=== PATIENT | male | born 1960 | race Caucasian/White ===

== ENCOUNTER 2021-02-20 19:22 | Emergency (ER) | payer MEDICAID, SELFPAY ==
[2021-02-20 19:41] VITALS: BP 120/84; PULSE 80; RESP 18; TEMP 36.7; O2SAT 97; BMI 25.1
[2021-02-20 20:01] VITALS: O2SAT 97
--- NOTE | 2021-02-20 20:41 | XRR_ITS ---
PROCEDURE INFORMATION: Exam: XR Chest Exam date and time: 02/20/2021 8:41 PM Age: 60 years old Clinical indication: Dyspnea; Additional info: SOB, covid + TECHNIQUE: Imaging protocol: XR of the chest. Views: 1 view. COMPARISON: No relevant prior studies available. FINDINGS: Lungs: There is some subtle peripheral haziness seen within the right hemithorax. There are strandy and patchy opacities present in the lower hemithoraces bilaterally. These findings are compatible with the patient's known COVID-19 pneumonia. Pleural spaces: Unremarkable. No pleural effusion. No pneumothorax. Heart/Mediastinum: Unremarkable. No cardiomegaly. Bones/joints: Unremarkable. XR/XR chest 1V portable [id number] IMPRESSION: Subtle haziness seen at the periphery of the right hemithorax and bilateral basilar patchy and strandy opacities present , findings compatible with the patient's known COVID-19 pneumonia.
[2021-02-20 20:59] LABS: Basophils % 0.1 %; Hematocrit 42.2 % (42.0-52.0); Hemoglobin 14.5 g/dL (11.7-16.6); Lymphocytes # 0.5 10^3/uL (0.8-4.8); Lymphocytes % 7.1 %; Mean Corpuscular HGB Conc 34.4 g/dL (30.0-36.0); Mean Corpuscular Hemoglobin 31.1 pg (28.0-34.0); Mean Corpuscular Volume 90.6 fL (80-94); Mean Platelet Volume 9.6 fL (7.4-10.4); Monocytes # 0.4 10^3/uL (0.2-0.9); Monocytes % 5.7 %; Neutrophils # 5.95 10^3/uL (1.8-7.7); Neutrophils % 86.7 %; Nucleated Red Blood Cells % 0 %; Platelet Count 316 10^3/cmm (130-400); Red Blood Count 4.66 10^6/uL (4.1-5.3); Red Cell Distribution Width 12.3 % (12.1-15.1); White Blood Count 6.9 10^3/uL (4.0-10.0)
[2021-02-20 21:06] LABS: D Dimer 1.17 ug/mIFEU (0-0.59)
--- NOTE | 2021-02-20 21:11 | CTR_ITS ---
PROCEDURE INFORMATION: Exam: CTA Chest With Contrast Exam date and time: 02/20/2021 9:11 PM Age: 60 years old Clinical indication: Shortness of breath; Patient HX: Covid+ w worsening SOB; Additional info: Covid+ and SOB, elevated ddimer TECHNIQUE: Imaging protocol: Computed tomographic angiography of the chest with contrast. 3D rendering (Not supervised by radiologist): MIP and/or 3D reconstructed images were created by the technologist. Radiation optimization: All CT scans at this facility use at least one of these dose optimization techniques: automated exposure control; mA and/or kV adjustment per patient size (includes targeted exams where dose is matched to clinical indication); or iterative reconstruction. Contrast material: OMNI 350; Contrast volume: 74 ml; Contrast route: INTRAVENOUS (IV); COMPARISON: CR (CHEST, ) 02/20/2021 9:10 PM RADIATION DOSE METRICS: Total DLP (mGy-cm): 580.04 FINDINGS: Pulmonary arteries: Normal. No pulmonary emboli. Aorta: Unremarkable. No aortic aneurysm. No aortic dissection. Lungs: Calcified nodularities are seen within the right hemithorax compatible with calcified granulomas. The largest is seen in the right upper lobe measuring approximately 5.7 mm in diameter. There are patchy predominantly peripheral ground-glass opacities present within the hemithoraces bilaterally, findings compatible with an interstitial pneumonia. Some strandy opacities and mild consolidation seen in the lung bases posteriorly bilaterally possibly representing atelectasis although consolidated pneumonia cannot be excluded. Pleural spaces: Unremarkable. No pneumothorax. No pleural effusion. Heart: Unremarkable. No cardiomegaly. No pericardial effusion. Lymph nodes: There are small mediastinal lymph nodes seen that are below CT criteria for lymphadenopathy. Kidneys and ureters: Prominent 4.5 cm hypoattenuation cystic mass seen in the pole of the right kidney. Stomach and bowel: There is a moderate hiatal hernia measuring 5 1 cm transverse dimension containing portion of the proximal stomach. Bones/joints: Unremarkable. No acute fracture. Soft tissues: Unremarkable. CT/CT angio chest PE protcl [id number] IMPRESSION: 1. There is no evidence for pulmonary emboli. 2. Patchy peripheral ground-glass opacities and some bibasilar consolidation is seen, findings compatible with bilateral interstitial pneumonia. Commonly reported imaging features of COVID-19 pneumonia are present. Other processes such as influenza pneumonia and organizing pneumonia, as can be seen with drug toxicity and connective tissue disease, can cause a similar imaging pattern. (Reference: Ulises) 3. Benign calcified granuloma seen in the right hemithorax. 4. Benign 4.5 cm right renal cyst. No further workup needed. 5. Moderate hiatal hernia COMMENTS: Consistent with the [employer]'s Incidental Findings Committee white paper (J Am Mray Radiol 2018): Any incidental renal lesion less than 1 cm or classified as too small to characterize, or any incidental cystic renal lesion characterized as simple-appearing, is likely benign. No follow-up imaging is recommended for these lesions per consensus recommendations based on imaging criteria. REFERENCES: Ulises Lang, et al., Radiological Society of [place] Expert Consensus Statement on Reporting Chest CT Findings Related to COVID-19. Endorsed by the Society of Thoracic Radiology, the [place] [employer], and RSNA. Published November 19, 2019. Radiation Dose CTDIVOL = (mGy): DLP = 580.04 (mGy-cm)
--- NOTE | 2021-02-20 21:18 | W.ED.COVID ---
HPI - COVID General: Chief Complaint: COVID symptoms Stated Complaint: covid Time Seen by Provider: 02/20/21 20:05 Source: patient Mode of arrival: ambulatory Limitations: no limitations Triage information: Has fever, cough or shortness of breath. Exposure to COVID + person last 14 days History of Present Illness: HPI Narrative: This is a 60-year-old male who presents to the emergency department with complaints of shortness of breath. He states that his symptoms began 15 days ago4 days ago he got tested for COVID-19 and he tested positive. He has been gradually feeling worsening shortness of breath and today was worse. He called for an ambulance and they brought him here to be evaluated. In the ambulance he was given aspirin and started on oxygen at 3 L/min. MD complaint: known COVID positive Prior covid testing: yes, results known Prior testing date: 02/16/21 COVID 19 common symptoms: positive chills, cough, dyspnea, fatigue, body aches, loss of sense of smell and/or taste and nasal congestion; negative headache(s), throat pain, nausea, vomiting or diarrhea COVID 19 other sytmptoms: positive requiring oxygen and lethargy; negative chest pressure, chest pain, pleuritic pain, respiratory distress, cyanosis, confusion or new neurological complaints Onset (ago): day(s) (15) Severity: moderate Treatment prior to arrival: oxygen COVID Results: No Data to Display Review of Systems General: Reports: 10 or more systems reviewed and unremarkable except in HPI and below Const: Reports: chills, body aches and fatigue ENMT: Reports: nasal congestion; Denies: throat pain Card: Denies: chest pain Resp: Reports: dyspnea GI: Denies: nausea, vomiting or diarrhea Neuro: Denies: headache(s) or confusion Physical Exam Const: COMMON NORMALS: no acute distress, average body habitus, patient oriented x3, no limitations, healthy appearing, alert and well nourished HENMT: COMMON NORMALS: normocephalic, atraumatic and moist oral mucous membranes HEAD & SCALP: normocephalic and atraumatic Neck/C-Spine: COMMON NORMALS: no meningeal signs and no JVD Resp: COMMON NORMALS: normal respiratory effort, No retractions, No use of accessory muscles, clear to auscultation bilaterally and percussion normal AUSCULTATION: clear to auscultation bilaterally PERCUSSION: percussion normal Cardio: COMMON NORMALS: no JVD, regular rate, regular rhythm, S1 normal heart sound present, S2 normal heart sound present, No gallops present (Cardio), No clicks present (Cardio), No murmurs present (Cardio), No rub (Cardio) and Peripheral pulses 2+ throughout RATE: regular rate RHYTHM: regular rhythm HEART SOUNDS: S1 normal heart sound present and S2 normal heart sound present PERIPHERAL PULSES: Peripheral pulses 2+ throughout GI: COMMON NORMALS: Normal to inspection, nondistended, normoactive bowel sounds present, Soft to palpation, non-tender, No hepatosplenomegaly present, no masses and no bruits PALPATION: Yes Soft to palpation and Yes No hepatosplenomegaly present Extremity: COMMON NORMALS: normal to inspection, full ROM, capillary refill normal, no calf tenderness and no pedal edema Neuro: COMMON NORMALS: patient oriented x3 SENSORIUM/ORIENTATION: Yes alert MENINGEAL SIGNS: Yes no meningeal signs Course Vital Signs: Vital signs: Vital Signs Temperature 98.0 F 02/20/21 19:41 Pulse Rate 73 02/20/21 23:50 Respiratory Rate 20 H 02/20/21 23:50 Blood Pressure 121/89 02/20/21 23:50 Pulse Oximetry 96 02/20/21 23:28 MDM - COVID MDM Narrative: Medical decision making narrative: 60-year-old male who presented to the emergency department with complaints of worsening shortness of breath. He was recently diagnosed with COVID-19. Symptoms started about 15 days ago but in the last few days his shortness of breath has worsened. Today he called for an ambulance and although he was not hypoxic he was placed on oxygen and he felt much better. Evaluation in the emergency department does not show any thing concerning other than elevated D-dimer. CTA of his chest was negative for pulmonary embolism but did show findings consistent with Covid pneumonia. He is discharged home with a prescription for oral steroid. He is advised to return for any concerns. Medical Records: Attestation: I reviewed the patient's medical records. Lab Data: Attestation: I reviewed the patient's lab results. Labs: Lab Results 02/20/21 02/20/21 02/20/21 Range/Units 19:55 19:55 19:55 WBC 6.9 (4.0-10.0) 10^3/ uL RBC 4.66 (4.1-5.3) 10^6/u L Hgb 14.5 (11.7-16.6) g/dL Hct 42.2 (42.0-52.0) % MCV 90.6 (80-94) fL MCH 31.1 (28.0-34.0) pg MCHC 34.4 (30.0-36.0) g/dL RDW 12.3 (12.1-15.1) % Plt Count 316 (130-400) 10^3/c mm MPV 9.6 (7.4-10.4) fL Neut % (Auto) 86.7 % Lymph % (Auto) 7.1 % Platte % (Auto) 5.7 % Eos % (Auto) 0.0 % Baso % (Auto) 0.1 % Neut # (Auto) 5.95 (1.8-7.7) 10^3/u L Lymph # (Auto) 0.5 L (0.8-4.8) 10^3/u L Platte # (Auto) 0.4 (0.2-0.9) 10^3/u L Eos # (Auto) 0.0 (0.0-0.8) 10^3/u L Baso # (Auto) 0.0 (0.0-0.1) 10^3/u L Nucleated RBC % (a uto) 0 % Nucleated RBCs # 0.0 /100WBC D-Dimer 1.17 H (0-0.59) ug/mIFE U Specimen Type Sample Site ABG pH (7.35-7.45) ABG pCO2 (35-45) mmHg ABG pO2 (80.0-100.0) mmH g ABG HCO3 (22-26) mmol/L ABG Base Excess (-2.0-2.0) mmol/ L Aubrey Test Hematocrit (42-52) % O2 Delivery Device O2 Liters/Min % Aircraft Maintenance Engineer ID Sodium 138 (136-145) mmol/L Potassium 3.7 (3.5-5.1) mmol/L Chloride 101 (98-107) mmol/L Carbon Dioxide 20 L (22-29) mmol/L Anion Gap 20.7 H (5-19) BUN 14 (8-23) mg/dL Creatinine 0.7 (0.7-1.2) mg/dL GFR Calculation 114.6 (90-130) mL/min Glucose 102 (65-115) mg/dL Calculated Osmolal ity 287 (285-295) mOsm/k g Lactic Acid (0.5-2.2) mmol/L Calcium 8.9 (8.5-10.5) mg/dL Total Bilirubin 0.5 (0.15-1.2) mg/dL AST 43 H (0-40) U/L ALT 18 (0-41) U/L Alkaline Phosphata se 55 (40-130) IU/L C-Reactive Protein 46.0 H (0.0-4.9) mg/L NT-Pro-B Natriuret Pep 92 (0-125) pg/mL Total Protein 6.9 (6.6-8.7) g/dL Albumin 3.7 (3.5-5.2) g/dL Globulin 3.2 (1.3-4.6) g/dL Procalcitonin 0.19 (0-0.5) ng/mL 02/20/21 02/20/21 Range/Units 20:53 21:10 WBC (4.0-10.0) 10^3/ uL RBC (4.1-5.3) 10^6/u L Hgb (11.7-16.6) g/dL Hct (42.0-52.0) % MCV (80-94) fL MCH (28.0-34.0) pg MCHC (30.0-36.0) g/dL RDW (12.1-15.1) % Plt Count (130-400) 10^3/c mm MPV (7.4-10.4) fL Neut % (Auto) % Lymph % (Auto) % Platte % (Auto) % Eos % (Auto) % Baso % (Auto) % Neut # (Auto) (1.8-7.7) 10^3/u L Lymph # (Auto) (0.8-4.8) 10^3/u L Platte # (Auto) (0.2-0.9) 10^3/u L Eos # (Auto) (0.0-0.8) 10^3/u L Baso # (Auto) (0.0-0.1) 10^3/u L Nucleated RBC % (a uto) % Nucleated RBCs # /100WBC D-Dimer (0-0.59) ug/mIFE U Specimen Type Arterial Sample Site Radial, left ABG pH 7.41 (7.35-7.45) ABG pCO2 33.4 L (35-45) mmHg ABG pO2 90.6 (80.0-100.0) mmH g ABG HCO3 21.4 L (22-26) mmol/L ABG Base Excess -2.4 L (-2.0-2.0) mmol/ L Aubrey Test Pos Hematocrit 46.9 (42-52) % O2 Delivery Device Nc O2 Liters/Min 2.0 % Aircraft Maintenance Engineer ID [email or web address] Sodium (136-145) mmol/L Potassium (3.5-5.1) mmol/L Chloride (98-107) mmol/L Carbon Dioxide (22-29) mmol/L Anion Gap (5-19) BUN (8-23) mg/dL Creatinine (0.7-1.2) mg/dL GFR Calculation (90-130) mL/min Glucose (65-115) mg/dL Calculated Osmolal ity (285-295) mOsm/k g Lactic Acid 0.9 (0.5-2.2) mmol/L Calcium (8.5-10.5) mg/dL Total Bilirubin (0.15-1.2) mg/dL AST (0-40) U/L ALT (0-41) U/L Alkaline Phosphata se (40-130) IU/L C-Reactive Protein (0.0-4.9) mg/L NT-Pro-B Natriuret Pep (0-125) pg/mL Total Protein (6.6-8.7) g/dL Albumin (3.5-5.2) g/dL Globulin (1.3-4.6) g/dL Procalcitonin (0-0.5) ng/mL Imaging Data: CTA Chest: Attestation: I personally reviewed and interpreted this imaging study as follows: Radiologist's impression: [address] [id number] Scan ReportSigned Patient: José Luis Real #: [id number]: 1960Acct#:[id number]/Sex: 60 / MADM Date: 02/20/21Loc: ERRoom/Bed:Attending Dr: Ordering Provider/Ordering MD: Marisol Hills MD, [facility] Date of Service: 02/20/21 Procedure(s): CT angio chest PE protcl [id number] Accession Number(s): [id number] Report Number: [id number] PROCEDURE INFORMATION: Exam: CTA Chest With Contrast Exam date and time: 02/20/2021 9:11 PM Age: 60 years old Clinical indication: Shortness of breath; Patient HX: Covid+ w worsening SOB; Additional info: Covid+ and SOB, elevated ddimer TECHNIQUE: Imaging protocol: Computed tomographic angiography of the chest with contrast. 3D rendering (Not supervised by radiologist): MIP and/or 3D reconstructed images were created by the technologist. Radiation optimization: All CT scans at this facility use at least one of these dose optimization techniques: automated exposure control; mA and/or kV adjustment per patient size (includes targeted exams where dose is matched to clinical indication); or iterative reconstruction. Contrast material: OMNI 350; Contrast volume: 74 ml; Contrast route: INTRAVENOUS (IV); COMPARISON: CR (CHEST, ) 02/20/2021 9:10 PM RADIATION DOSE METRICS: Total DLP (mGy-cm): 580.04 FINDINGS: Pulmonary arteries: Normal. No pulmonary emboli. Aorta: Unremarkable. No aortic aneurysm. No aortic dissection. Lungs: Calcified nodularities are seen within the right hemithorax compatible with calcified granulomas. The largest is seen in the right upper lobe measuring approximately 5.7 mm in diameter. There are patchy predominantly peripheral ground-glass opacities present within the hemithoraces bilaterally, findings compatible with an interstitial pneumonia. Some strandy opacities and mild consolidation seen in the lung bases posteriorly bilaterally possibly representing atelectasis although consolidated pneumonia cannot be excluded. Pleural spaces: Unremarkable. No pneumothorax. No pleural effusion. Heart: Unremarkable. No cardiomegaly. No pericardial effusion. Lymph nodes: There are small mediastinal lymph nodes seen that are below CT criteria for lymphadenopathy. Kidneys and ureters: Prominent 4.5 cm hypoattenuation cystic mass seen in the pole of the right kidney. Stomach and bowel: There is a moderate hiatal hernia measuring 5 1 cm transverse dimension containing portion of the proximal stomach. Bones/joints: Unremarkable. No acute fracture. Soft tissues: Unremarkable. CT/CT angio chest PE protcl [id number] IMPRESSION: 1. There is no evidence for pulmonary emboli. 2. Patchy peripheral ground-glass opacities and some bibasilar consolidation is seen, findings compatible with bilateral interstitial pneumonia. Commonly reported imaging features of COVID-19 pneumonia are present. Other processes such as influenza pneumonia and organizing pneumonia, as can be seen with drug toxicity and connective tissue disease, can cause a similar imaging pattern. (Reference: Ulises) 3. Benign calcified granuloma seen in the right hemithorax. 4. Benign 4.5 cm right renal cyst. No further workup needed. 5. Moderate hiatal hernia COMMENTS: Consistent with the [place] [employer]'s Incidental Findings Committee white paper (J Am Mary Radiol 2018): Any incidental renal lesion less than 1 cm or classified as too small to characterize, or any incidental cystic renal lesion characterized as simple-appearing, is likely benign. No follow-up imaging is recommended for these lesions per consensus recommendations based on imaging criteria. REFERENCES: Ulises Lang, et al., Rad[employer] Society of [place] Expert Consensus Statement on Reporting Chest CT Findings Related to COVID-19. Endorsed by the Society of Thoracic Radiology, the [place] [employer], and RSNA. Published November 19, 2019. Radiation Dose CTDIVOL = (mGy): DLP = 580.04 (mGy-cm) Dictated By:Binu Alvarado MDSigned By:Binu Alvarado MDSigned Date/Time:02/20/212314DD/ 13 CXR: Attestation: I personally reviewed and interpreted this imaging study as follows: Radiologist's impression: [address] [id number] ReportSigned Patient: José Luis Real #: [id number]: 1960Acct#:[id number]/Sex: 60 / MADM Date: 02/20/21Loc: ERRoom/Bed:Attending Dr: Ordering Provider/Ordering MD: Marisol Hills MD, [facility] Date of Service: 02/20/21 Procedure(s): XR chest 1V portable [id number] Accession Number(s): [id number] Report Number: [id number] PROCEDURE INFORMATION: Exam: XR Chest Exam date and time: 02/20/2021 8:41 PM Age: 60 years old Clinical indication: Dyspnea; Additional info: SOB, covid + TECHNIQUE: Imaging protocol: XR of the chest. Views: 1 view. COMPARISON: No relevant prior studies available. FINDINGS: Lungs: There is some subtle peripheral haziness seen within the right hemithorax. There are strandy and patchy opacities present in the lower hemithoraces bilaterally. These findings are compatible with the patient's known COVID-19 pneumonia. Pleural spaces: Unremarkable. No pleural effusion. No pneumothorax. Heart/Mediastinum: Unremarkable. No cardiomegaly. Bones/joints: Unremarkable. XR/XR chest 1V portable [id number] IMPRESSION: Subtle haziness seen at the periphery of the right hemithorax and bilateral basilar patchy and strandy opacities present , findings compatible with the patient's known COVID-19 pneumonia. Dictated By:Binu Alvarado MDSigned By:Binu Alvarado MDSigned Date/Time:02/20/212316DD/ 15 COVID Results: No Data to Display Monoclonal Antibody Treatments Inclusion/Exclusion Criteria weight >/= 40 kg and + direct Sars-Cov-2 test less than 7-10 days ago needs oxygen (DO NOT GIVE) Plan for treatment Does not meet criteria (DO NOT GIVE) Discharge Plan Discharge Patient Disposition: Home Clinical Impression: Pneumonia due to 2019 novel coronavirus Condition: Stable Prescriptions: New dexamethasone 6 mg tablet 6 mg PO DAILY Qty: 5 RF: 0 Discharge Orders: Discharge ED (Routine); Ordered 02/20/21 Ordered By: Marisol Hills Other Ambulatory Orders: DME: Oxygen (Order) Location: None Selected Ordered By: Marisol Hills Discharge Diet: Usual diet Discharge Activity: Increase activity as tolerated Patient Instructions: Viral Pneumonia (ED) Activity Restrictions/Additional Instructions: Return for any new or worsening symptoms. Follow-up with your primary care provider within 3 days via telemedicine. Take the steroid as prescribed. Use the oxygen. If you feel your symptoms are getting worse including worsening oxygen levels despite being on oxygen and please return for evaluation. Coding Level of Care Code ED Senior Compliance Officer for Edmundo Shah
[2021-02-20 21:24] LABS: ABG PCO2 33.4 mmHg (35-45); ABG PH Result 7.41 (7.35-7.45); Arterial Blood Gas Hematocrit 46.9 % (42-52); Base Excess ABG -2.4 mmol/L (-2.0-2.0); Blood Gas Allen Test Pos; Blood Gas Sample Site Radial, left; Blood Gas Sample Type Arterial; HCO3 ABG 21.4 mmol/L (22-26); Oxygen Device NC; PO2 ABG 90.6 mmHg (80.0-100.0)
[2021-02-20 21:33] LABS: NT Pro B Type Natriuretic Pept 92 pg/mL (0-125); Procalcitonin 0.19 ng/mL (0-0.5)
[2021-02-20 21:44] LABS: Alanine Aminotransferase 18 U/L (0-41); Albumin Level 3.7 g/dL (3.5-5.2); Alkaline Phosphatase 55 IU/L (40-130); Anion Gap 20.7 (5-19); Aspartate Amino Transferase 43 U/L (0-40); Blood Urea Nitrogen 14 mg/dL (8-23); Calcium 8.9 mg/dL (8.5-10.5); Carbon Dioxide 20 mmol/L (22-29); Chloride 101 mmol/L (98-107); Globulin 3.2 g/dL (1.3-4.6); Glomerular Filtration Rate 114.6 mL/min (90-130); Glucose 102 mg/dL (65-115); Osmolality Calculated 287 mOsm/kg (285-295); Potassium 3.7 mmol/L (3.5-5.1); Sodium 138 mmol/L (136-145); Total Bilirubin 0.5 mg/dL (0.15-1.2); Total Protein 6.9 g/dL (6.6-8.7)
[2021-02-20 21:46] LABS: Lactic Sepsis W/Reflex 0.9 mmol/L (0.5-2.2)
[2021-02-20] MEDS: iohexol 350 mg/mL 100 mL Btl IV (22:34)
[2021-02-20 23:28] VITALS: BP 127/60; PULSE 81; RESP 20; O2SAT 96
[2021-02-20] MEDS: dexamethasone 4 mg/mL INJ 6 MG IVP (23:46)
[2021-02-20 23:50] VITALS: BP 121/89; PULSE 73; RESP 20
[2021-02-21 00:16] LABS: Ferritin 534 ng/mL (30-400)
== END 2021-02-21 00:04 | disposition home or self-care (01) ==
PROVIDERS: Emergency Provider Family Medicine
DX: U07.1 COVID-19 (principal); J12.82 Pneumonia due to coronavirus disease 2019
CPT/HCPCS: 36415; 36600; 71045; 71275; 80053; 82728; 82803; 83605; 83880; 84145; 85025; 85378; 86140; 96374; 99284; J1100; Q9967